=== PATIENT | female | born 1970 | race Two or more races ===

== ENCOUNTER 2018-10-27 11:48 | Inpatient (IN) | payer MEDICAID ==
[~2018-10-27] VITALS: Ht 172.7 cm; Wt 113.4 kg
[~2018-10-27 11:48] MED LIST: CYCLOBENZAPRINE10 MG ORAL; IBUPROFEN800 MG ORAL
--- NOTE | 2018-10-27 11:50 | NUR ---
ED Nurse Note: pt brought by RA from home due to abdominal pain aw n/v for 2 days. moaning and facial grimacing noted. RN noted that pt forced herself to vomit. RN instructed pt, not to do that. pt seen by other ER yesterday. AV shunt noted on left upper arm. on every MWF. last one done yesterday. AAO x4. respirations even and non-labored noted. on monitoring specialist. will wait for the further order.
--- NOTE | 2018-10-27 12:15 | NUR ---
ED Nurse Note: pt medicated and tolerated well
[2018-10-27 12:18] VITALS: BP 159/80
[2018-10-27 12:28] LABS: HEMATOCRIT 39.9 % (37.0-47.0); HEMOGLOBIN 12.5 G/DL (12.0-16.0); MEAN CORPUSCULAR VOLUME 88 FL (80-99); PLATELET COUNT 275 K/UL (150-450); RED BLOOD COUNT 4.52 M/UL (4.20-5.40); RED CELL DISTRIBUTION WIDTH 15.7 % (11.6-14.8); WHITE BLOOD COUNT 14.5 K/UL (4.8-10.8)
[2018-10-27] MEDS ORDERED: LORazepam Inj 2mg/ml 1ml IV ONE (12:30)
--- NOTE | 2018-10-27 12:44 | NUR ---
ED Nurse Note: seen by wayne, with ativan iv and pepcid iv order and given to pt and tolerated well. will continue to monitor
--- NOTE | 2018-10-27 12:45 | NUR ---
ED Nurse Note: RN found 1L NS running, stop the fluid. notified Dr. Pruitt that pt is dialysis pt. will cont. to stop the fluid and monitor. RN also notified that pt is making urine once a day and already went to restroom.
[2018-10-27] MEDS ORDERED: Morphine Sulfate 4mg/ml Inj (IV USE ONLY) IVP ONE (13:00)
--- NOTE | 2018-10-27 13:00 | NUR ---
ED Nurse Note: per Dr. Pruitt, it is ok to transfer pt wihtout urine sample.
[2018-10-27 13:40] LABS: ANION GAP 12 mmol/L (5-15); BLOOD UREA NITROGEN 49 mg/dL (7-18); CALCIUM 8.2 MG/DL (8.5-10.1); CARBON DIOXIDE 28 MMOL/L (21-32); CHLORIDE 96 MMOL/L (98-107); CREATININE 6.3 MG/DL (0.55-1.30); POTASSIUM 4.8 MMOL/L (3.5-5.1); SODIUM 136 MMOL/L (136-145)
[2018-10-27 13:45] LABS: ALANINE AMINOTRANSFERASE 17 U/L (12-78); ALBUMIN 4.2 G/DL (3.4-5.0); ALBUMIN/GLOBULIN RATIO 1.3 (1.0-2.7); ALKALINE PHOSPHATASE 116 U/L (46-116); ASPARTATE AMINO TRANSFERASE 11 U/L (15-37); BILIRUBIN,TOTAL 0.4 MG/DL (0.2-1.0)
[2018-10-27 14:00] VITALS: BP 122/71
--- NOTE | 2018-10-27 14:50 | NUR ---
ED Nurse Note: called CT.
--- NOTE | 2018-10-27 15:36 | Diagnostic Imaging Report ---
Indication: Abdominal pain Technique: Spiral acquisitions obtained through the abdomen and pelvis. No oral contrast utilized, per emergency room physician request No IV contrast utilized, per referring physician request.. Multiplanar reconstructions were generated. Total dose length product 1047.12 mGycm. CTDIvol(s) 16.85 mGy. Dose reduction achieved using automated exposure control Comparison: None Findings: Lack of enteric contrast limits assessment of the GI tract. The appendix is normal. There is no evidence of diverticulosis or diverticulitis. No small bowel distention. No free or loculated intraperitoneal gas or fluid is evident. The distal esophagus, stomach, duodenum are unremarkable. Lack of IV contrast limits assessment of the solid organs. The liver, gallbladder, bile ducts, pancreas, spleen, adrenals are unremarkable. There is bilateral perinephric fat stranding which is nonspecific. The kidneys are somewhat atrophic, are otherwise unremarkable. No renal or ureteral calculi, hydronephrosis, or hydroureter demonstrated. No focal abnormality. No retroperitoneal or mesenteric mass or adenopathy. No pelvic mass or adenopathy. The uterus and ovaries are unremarkable. The bladder is unremarkable. The included lung bases demonstrate dependent atelectatic changes. The bones are unremarkable. Impression: Limited assessment of the GI tract, due to lack of enteric contrast administration No definite acute abnormality Mildly atrophic kidneys The CT scanner at [facility] is accredited by the [employer] and the scans are performed using protocols designed to limit radiation exposure to as low as reasonably achievable to attain images of sufficient resolution adequate for diagnostic evaluation.
--- NOTE | 2018-10-27 16:50 | NUR ---
ED Nurse Note: unable to received reports at this time per ERICK Dalton. will call back 15 mins as requested.
[2018-10-27 17:00] VITALS: BP 128/66
[2018-10-27] MEDS ORDERED: UNOBMED (17:17)
--- NOTE | 2018-10-27 17:19 | NUR ---
ED Nurse Note: Reports given to ERICK Powers.
[2018-10-27] MEDS ORDERED: Morphine Sulfate 2mg/ml Inj(IV/IM USE ONLY) IVP PRN (17:45)
[2018-10-27] MEDS ORDERED: Miralax 17gm pkt ORAL PRN (17:45)
[2018-10-27] MEDS ORDERED: Dextrose 50% 25ml Syringe IV PRN (17:45)
--- NOTE | 2018-10-27 17:45 | NUR ---
NURSE NOTES: Patient came to unit by rodríguez in stable condition. Alert and oriented x4. No complain of pain or distress at this time. Skin intact and dry. IV dressing intact and dry. Belonging checked. Bed lowest position. Call light within reach. Will continue to monitor.
[2018-10-27 18:00] VITALS: BP 146/66
--- NOTE | 2018-10-27 19:30 | NUR ---
HAND-OFF: Report given to Fabiana CHEEMA. Patient in stable condition.
[2018-10-27 20:00] VITALS: BP 147/71
[2018-10-27] MEDS ORDERED: Fleet's Mineral Oil Enema RECTAL SCH (20:30)
--- NOTE | 2018-10-27 20:36 | Emergency Room Report ---
History of Present Illness General Chief Complaint: Abdominal Pain Source: Patient Present Illness HPI Patient is a 48-year-old female presented after increased abdominal pain and vomiting. Patient reports having prior history of diabetes as well as end- stage renal disease. She reports having dialysis yesterday. She is normally dialyzed Wednesday. Patient had not been having any fever. She reports having increased epigastric discomfort as well as pain to the right side of her abdomen. She denies prior history of gallstones. She denies any hemoptysis or hematemesis. She reports having some history of anxiety. Allergies: Coded Allergies: NO KNOWN DRUG ALLERGIES (Unverified Allergy, Unknown, 06/06/14) Patient History Past Medical History: see triage record Now: No Reviewed Nursing Documentation: PMH: Agreed; PSxH: Agreed Nursing Documentation-PMH Past Medical History: No History, Except For Hx Cardiac Problems: Yes Hx Hypertension: Yes Hx Diabetes: Yes Hx Cancer: No Hx Gastrointestinal Problems: Yes Hx Dialysis: Yes Hx Neurological Problems: No Review of Systems All Other Systems: negative except mentioned in HPI Physical Exam Vital Signs Date Time Temp Pulse Resp B/P (MAP) Pulse Ox O2 Delivery O2 Flow Rate FiO2 10/27/18 11:39 98.4 96 24 159/80 (106) 100 Room Air General Appearance: obese, Chronically Ill ENT: hearing grossly normal, other - angular chelitis Neck: full range of motion, supple Respiratory: chest non-tender, lungs clear, normal breath sounds Cardiovascular #1: normal peripheral pulses, regular rate, rhythm Gastrointestinal: soft, tenderness - epigastric Genitourinary: normal inspection, no CVA tenderness Musculoskeletal: normal inspection, back normal Neurologic: normal inspection, alert, oriented x3, responsive, 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 Differential diagnosis include was not limited to myocardial infarction, gastritis, peptic ulcer disease, gastroparesis among others. Because of complexity of patient's case laboratory testing and imaging studies were ordered. Patient was noted to have prior history of end-stage renal disease. Patient was given IV fluids as well as IV antiemetics. She was noted to have some persistent pain was subsequently given pain medications as well as medications for anxiety. She was noted to have some slight improvement in symptoms. CT the abdomen pelvis read by radiology showed no evidence of acute process. Patient will be admitted to the hospital for further evaluation of epigastric pain. Dr. Kevin Hameed was contacted for inpatient management Labs Test 10/27/18 01:09 10/27/18 12:05 Sodium Level 136 MMOL/L (136-145) Potassium Level 4.8 MMOL/L (3.5-5.1) Chloride Level 96 MMOL/L (98-107) Carbon Dioxide Level 28 MMOL/L (21-32) Anion Gap 12 mmol/L (5-15) Blood Urea Nitrogen 49 mg/dL (7-18) Creatinine 6.3 MG/DL (0.55-1.30) Estimat Glomerular Filtration Rate 7.0 mL/min (>60) Glucose Level 320 MG/DL (74-106) Calcium Level 8.2 MG/DL (8.5-10.1) Total Bilirubin 0.4 MG/DL (0.2-1.0) Aspartate Amino Transf (AST/SGOT) 11 U/L (15-37) Alanine Aminotransferase (ALT/SGPT) 17 U/L (12-78) Alkaline Phosphatase 116 U/L (46-116) Total Protein 7.5 G/DL (6.4-8.2) Albumin 4.2 G/DL (3.4-5.0) Globulin 3.3 g/dL Albumin/Globulin Ratio 1.3 (1.0-2.7) Lipase 111 U/L (73-393) Serum Alcohol < 3 mg/dL White Blood Count 14.5 K/UL (4.8-10.8) Red Blood Count 4.52 M/UL (4.20-5.40) Hemoglobin 12.5 G/DL (12.0-16.0) Hematocrit 39.9 % (37.0-47.0) Mean Corpuscular Volume 88 FL (80-99) Mean Corpuscular Hemoglobin 27.7 PG (27.0-31.0) Mean Corpuscular Hemoglobin Concent 31.4 G/DL (32.0-36.0) Red Cell Distribution Width 15.7 % (11.6-14.8) Platelet Count 275 K/UL (150-450) Mean Platelet Volume 6.2 FL (6.5-10.1) Neutrophils (%) (Auto) % (45.0-75.0) Lymphocytes (%) (Auto) % (20.0-45.0) Monocytes (%) (Auto) % (1.0-10.0) Eosinophils (%) (Auto) % (0.0-3.0) Basophils (%) (Auto) % (0.0-2.0) Differential Total Cells Counted 100 Neutrophils % (Manual) 92 % (45-75) Lymphocytes % (Manual) 5 % (20-45) Monocytes % (Manual) 3 % (1-10) Eosinophils % (Manual) 0 % (0-3) Basophils % (Manual) 0 % (0-2) Band Neutrophils 0 % (0-8) Platelet Estimate Adequate Platelet Morphology Normal Red Blood Cell Morphology Normal Prothrombin Time 11.1 SEC (9.30-11.50) Prothromb Time International Ratio 1.0 (0.9-1.1) Activated Partial Thromboplast Time 26 SEC (23-33) Last Vital Signs Date Time Temp Pulse Resp B/P (MAP) Pulse Ox O2 Delivery O2 Flow Rate FiO2 10/27/18 18:14 Room Air 10/27/18 18:00 97.4 92 20 146/66 (92) 94 Status: unchanged Disposition: ADMITTED INPATIENT Condition: Serious Referrals: NOT CHOSEN NABEEL/,REFERRING (PCP) Kendell Pruitt MD Oct 27, 2018 20:36
[2018-10-27] MEDS: NovoLOG Insulin Flexpen SUBQ SCH (21:00)
[2018-10-27] MEDS ORDERED: Zolpidem 5mg tab ORAL PRN (21:00)
[2018-10-27] MEDS: Heparin 5000 units/ml inj SUBQ SCH (21:52)
[2018-10-28] VITALS: BP 141/60
[2018-10-28 04:00] VITALS: BP 136/68
[2018-10-28] MEDS: NovoLOG Insulin Flexpen SUBQ SCH ×4 (06:31→21:38)
[2018-10-28 06:34] LABS: HEMATOCRIT 37.4 % (37.0-47.0); HEMOGLOBIN 11.9 G/DL (12.0-16.0); MEAN CORPUSCULAR VOLUME 88 FL (80-99); PLATELET COUNT 274 K/UL (150-450); RED BLOOD COUNT 4.23 M/UL (4.20-5.40); RED CELL DISTRIBUTION WIDTH 15.5 % (11.6-14.8); WHITE BLOOD COUNT 11.7 K/UL (4.8-10.8)
[2018-10-28 07:06] LABS: ALANINE AMINOTRANSFERASE 17 U/L (12-78); ALBUMIN 3.5 G/DL (3.4-5.0); ALBUMIN/GLOBULIN RATIO 0.9 (1.0-2.7); ALKALINE PHOSPHATASE 97 U/L (46-116); ANION GAP 12 mmol/L (5-15); ASPARTATE AMINO TRANSFERASE 5 U/L (15-37); BILIRUBIN,TOTAL 0.3 MG/DL (0.2-1.0); BLOOD UREA NITROGEN 61 mg/dL (7-18); CALCIUM 8.8 MG/DL (8.5-10.1); CARBON DIOXIDE 29 MMOL/L (21-32); CHLORIDE 100 MMOL/L (98-107); CHOLESTEROL 184 MG/DL (< 200); CREATININE 7.3 MG/DL (0.55-1.30); HDL CHOLESTEROL 38 MG/DL (40-60); SODIUM 141 MMOL/L (136-145); TRIGLYCERIDES 121 MG/DL (30-150)
--- NOTE | 2018-10-28 07:30 | NUR ---
HAND-OFF: Report given to Sha Velasco
--- NOTE | 2018-10-28 07:35 | NUR ---
NURSE NOTES: Patient lying in bed awake. Complain of pain 10/10 on abdomen area. Will administer pain medication as ordered. Skin intact and dry. IV dressing intact and dry. Bed lowest position. Call light within reach. Will continue to monitor.
[2018-10-28 08:00] VITALS: BP 158/124
[2018-10-28] MEDS: sitaGLIPtin 25mg tab ORAL SCH (08:08)
[2018-10-28] MEDS: Heparin 5000 units/ml inj SUBQ SCH ×2 (08:13→21:00)
[2018-10-28] MEDS ORDERED: LORazepam Inj 2mg/ml 1ml IV SCH (09:55)
[2018-10-28 12:00] VITALS: BP 146/57
--- NOTE | 2018-10-28 12:05 | NUR ---
NURSE NOTES: Called [facility] and spoke to Greg that patient has dialysis order for today. Greg will contact insulation board back tender nurse.
[2018-10-28] MEDS: Nateglinide 60mg tab ORAL SCH ×2 (12:13→16:53)
--- NOTE | 2018-10-28 12:38 | NUR ---
NURSE NOTES: Spoke to regarding patient and new order received. Order read back and carried out.
[2018-10-28] MEDS ORDERED: ALPRAZolam 0.5mg tab ORAL PRN (12:45)
--- NOTE | 2018-10-28 12:50 | Consultation ---
History of Present Illness General Chief Complaint: Abdominal Pain Present Illness HPI 48 year old with hx of ESRF on HD, DM, HTN, morbid obesity presented to Er with CC of abdominal pain, headache, neck pain and some other general complains Allergies: Coded Allergies: NO KNOWN DRUG ALLERGIES (Unverified Allergy, Unknown, 06/06/14) Medication History Scheduled Cyclobenzaprine Hcl* (Flexeril*), 10 MG ORAL THREE TIMES A DAY Ibuprofen* (Motrin*), 800 MG ORAL THREE TIMES A DAY Miscellaneous Medications Unable to Obtain Medications (Unable To Obtain Meds), (Reported) Patient History Healthcare decision maker Resuscitation status Full Code Advanced Directive on File Past Medical/Surgical History Past Medical/Surgical History: (1) Diabetes mellitus (2) ESRD (end stage renal disease) (3) Morbid obesity Physical Exam General Appearance: WD/WN, morbidly obese Lines, tubes and drains: peripheral HEENT: normocephalic, atraumatic Neck: non-tender, supple Respiratory/Chest: chest wall non-tender, lungs clear Breasts: no masses Cardiovascular/Chest: normal peripheral pulses, normal rate Abdomen: normal bowel sounds Genitourinary/Rectal: normal genital exam Extremities: normal range of motion Last 24 Hour Vital Signs Date Time Temp Pulse Resp B/P (MAP) Pulse Ox O2 Delivery O2 Flow Rate FiO2 10/28/18 09:00 Room Air 10/28/18 08:00 99.1 113 17 158/124 (135) 99 10/28/18 04:00 98.2 70 20 136/68 (90) 96 10/28/18 00:00 98.7 95 18 141/60 (87) 93 10/27/18 21:00 Room Air 10/27/18 20:00 98.3 88 18 147/71 (96) 93 10/27/18 18:14 Room Air 10/27/18 18:00 97.4 92 20 146/66 (92) 94 10/27/18 17:17 98.0 83 16 143/63 95 Room Air 10/27/18 17:00 98.2 88 17 128/66 96 Room Air 10/27/18 14:00 98.3 90 16 122/71 99 Room Air Intake and Output 10/27/18 10/28/18 19:00 07:00 Intake Total 600 ml 680 ml Balance 600 ml 680 ml Intake Oral 0 ml 680 ml IV Total 600 ml # Voids 6 # Bowel Movements 1 Laboratory Tests Test 10/28/18 05:10 White Blood Count 11.7 K/UL (4.8-10.8) H Red Blood Count 4.23 M/UL (4.20-5.40) Hemoglobin 11.9 G/DL (12.0-16.0) L Hematocrit 37.4 % (37.0-47.0) Mean Corpuscular Volume 88 FL (80-99) Mean Corpuscular Hemoglobin 28.1 PG (27.0-31.0) Mean Corpuscular Hemoglobin Concent 31.8 G/DL (32.0-36.0) L Red Cell Distribution Width 15.5 % (11.6-14.8) H Platelet Count 274 K/UL (150-450) Mean Platelet Volume 5.9 FL (6.5-10.1) L Neutrophils (%) (Auto) % (45.0-75.0) Lymphocytes (%) (Auto) % (20.0-45.0) Monocytes (%) (Auto) % (1.0-10.0) Eosinophils (%) (Auto) % (0.0-3.0) Basophils (%) (Auto) % (0.0-2.0) Differential Total Cells Counted 100 Neutrophils % (Manual) 83 % (45-75) H Lymphocytes % (Manual) 11 % (20-45) L Monocytes % (Manual) 5 % (1-10) Eosinophils % (Manual) 1 % (0-3) Basophils % (Manual) 0 % (0-2) Band Neutrophils 0 % (0-8) Platelet Estimate Adequate Platelet Morphology Normal Hypochromasia 1+ Anisocytosis 1+ Sodium Level 141 MMOL/L (136-145) Potassium Level 5.0 MMOL/L (3.5-5.1) Chloride Level 100 MMOL/L (98-107) Carbon Dioxide Level 29 MMOL/L (21-32) Anion Gap 12 mmol/L (5-15) Blood Urea Nitrogen 61 mg/dL (7-18) H Creatinine 7.3 MG/DL (0.55-1.30) H Estimat Glomerular Filtration Rate 5.9 mL/min (>60) Glucose Level 184 MG/DL (74-106) #H Hemoglobin A1c 9.5 % (4.3-6.0) H Calcium Level 8.8 MG/DL (8.5-10.1) Total Bilirubin 0.3 MG/DL (0.2-1.0) Aspartate Amino Transf (AST/SGOT) 5 U/L (15-37) L Alanine Aminotransferase (ALT/SGPT) 17 U/L (12-78) Alkaline Phosphatase 97 U/L (46-116) Total Protein 7.6 G/DL (6.4-8.2) Albumin 3.5 G/DL (3.4-5.0) Globulin 4.1 g/dL Albumin/Globulin Ratio 0.9 (1.0-2.7) L Triglycerides Level 121 MG/DL (30-150) Cholesterol Level 184 MG/DL (< 200) LDL Cholesterol 126 mg/dL (<100) H HDL Cholesterol 38 MG/DL (40-60) L Cholesterol/HDL Ratio 4.8 (3.3-4.4) H Thyroid Stimulating Hormone (TSH) 2.580 uiU/mL (0.358-3.740) Height (Feet): 5 Height (Inches): 8.00 Weight (Pounds): 250 Medications Current Medications Medications (Trade) Dose Ordered Sig/Trinh Route PRN Reason Start Time Stop Time Status Last Admin Dose Admin Acetaminophen (Tylenol) 650 mg Q4H PRN ORAL T>100.5 10/27/18 17:45 11/26/18 17:44 Alprazolam (Xanax) 0.5 mg Q6H PRN ORAL For Anxiety 10/28/18 12:45 11/04/18 12:44 Clonidine HCl (Catapres Tab) 0.1 mg Q4H PRN ORAL BP over 160 syst and 100 diast 10/28/18 12:00 11/27/18 11:59 Dextrose (Dextrose 50%) 25 ml Q30M PRN IV Hypoglycemia 10/27/18 17:45 11/26/18 17:41 Dextrose (Dextrose 50%) 50 ml Q30M PRN IV hypoglycemia 10/27/18 17:45 11/26/18 17:44 Heparin Sodium (Porcine) (Heparin 5000 units/ml) 5,000 units EVERY 12 HOURS SUBQ 10/27/18 21:00 11/26/18 20:59 10/28/18 08:13 Insulin Aspart (NovoLOG) BEFORE MEALS AND HS SUBQ 10/27/18 21:00 11/26/18 20:59 10/28/18 12:14 Morphine Sulfate (Morphine Sulfate) 1 mg Q4H PRN IVP PAIN 4-10 10/27/18 17:45 11/03/18 17:44 10/28/18 08:09 Nateglinide (Starlix) 60 mg TIAC ORAL 10/28/18 11:30 11/27/18 11:29 10/28/18 12:13 Ondansetron HCl (Zofran) 4 mg Q6H PRN IVP Nausea & Vomiting 10/27/18 17:45 11/26/18 17:44 10/28/18 06:29 Polyethylene Glycol (Miralax) 17 gm HSPRN PRN ORAL Constipation 10/27/18 17:45 11/26/18 17:44 Sitagliptin Phosphate (Januvia) 25 mg ACBREAKFAST ORAL 10/28/18 07:15 11/27/18 07:14 10/28/18 08:08 Zolpidem Tartrate (Ambien) 5 mg HSPRN PRN ORAL Insomnia 10/27/18 21:00 11/03/18 20:59 Assessment/Plan Problem List: (1) ESRD (end stage renal disease) ICD Codes: N18.6 - End stage renal disease SNOMED: 81726332 (2) Morbid obesity ICD Codes: E66.01 - Morbid (severe) obesity due to excess calories SNOMED: 916674012 (3) Muscle spasm ICD Codes: M62.838 - Other muscle spasm SNOMED: 14097026 (4) Diabetes mellitus ICD Codes: E11.9 - Type 2 diabetes mellitus without complications SNOMED: 49537635 Assessment/Plan: HD symptomatic treatment sliding scale fleet enema dvt prophylaxis Gale Lerner MD Oct 28, 2018 12:50
--- NOTE | 2018-10-28 14:21 | General Progress Note ---
Assessment/Plan Problem List: (1) ESRD (end stage renal disease) ICD Codes: N18.6 - End stage renal disease SNOMED: 53948380 (2) Diabetes mellitus ICD Codes: E11.9 - Type 2 diabetes mellitus without complications SNOMED: 06122516 (3) Morbid obesity ICD Codes: E66.01 - Morbid (severe) obesity due to excess calories SNOMED: 451898618 (4) Abdominal pain ICD Codes: R10.9 - Unspecified abdominal pain SNOMED: 05815320 Status Narrative ? cause for abd pain labs and CT reviewed ordered abd us repeat labs ppi Subjective ROS Limited/Unobtainable: Yes Allergies: Coded Allergies: NO KNOWN DRUG ALLERGIES (Unverified Allergy, Unknown, 06/06/14) Objective Last 24 Hour Vital Signs Date Time Temp Pulse Resp B/P (MAP) Pulse Ox O2 Delivery O2 Flow Rate FiO2 10/28/18 12:00 98.5 107 16 146/57 (86) 99 10/28/18 09:00 Room Air 10/28/18 08:00 99.1 113 17 158/124 (135) 99 10/28/18 04:00 98.2 70 20 136/68 (90) 96 10/28/18 00:00 98.7 95 18 141/60 (87) 93 10/27/18 21:00 Room Air 10/27/18 20:00 98.3 88 18 147/71 (96) 93 10/27/18 18:14 Room Air 10/27/18 18:00 97.4 92 20 146/66 (92) 94 10/27/18 17:17 98.0 83 16 143/63 95 Room Air 10/27/18 17:00 98.2 88 17 128/66 96 Room Air Intake and Output 10/27/18 10/28/18 18:59 06:59 Intake Total 600 ml 680 ml Balance 600 ml 680 ml Intake Oral 0 ml 680 ml IV Total 600 ml # Voids 6 # Bowel Movements 1 Laboratory Tests 10/28/18 05:10: White Blood Count 11.7H, Red Blood Count 4.23, Hemoglobin 11.9L, Hematocrit 37.4 , Mean Corpuscular Volume 88, Mean Corpuscular Hemoglobin 28.1, Mean Corpuscular Hemoglobin Concent 31.8L, Red Cell Distribution Width 15.5H, Platelet Count 274, Mean Platelet Volume 5.9L, Neutrophils (%) (Auto) , Lymphocytes (%) (Auto) , Monocytes (%) (Auto) , Eosinophils (%) (Auto) , Basophils (%) (Auto) , Differential Total Cells Counted 100, Neutrophils % ( Manual) 83H, Lymphocytes % (Manual) 11L, Monocytes % (Manual) 5, Eosinophils % ( Manual) 1, Basophils % (Manual) 0, Band Neutrophils 0, Platelet Estimate Adequate, Platelet Morphology Normal, Hypochromasia 1+, Anisocytosis 1+, Sodium Level 141, Potassium Level 5.0, Chloride Level 100, Carbon Dioxide Level 29, Anion Gap 12, Blood Urea Nitrogen 61H, Creatinine 7.3H, Estimat Glomerular Filtration Rate 5.9, Glucose Level 184#H, Hemoglobin A1c 9.5H, Calcium Level 8.8 , Total Bilirubin 0.3, Aspartate Amino Transf (AST/SGOT) 5L, Alanine Aminotransferase (ALT/SGPT) 17, Alkaline Phosphatase 97, Total Protein 7.6, Albumin 3.5, Globulin 4.1, Albumin/Globulin Ratio 0.9L, Triglycerides Level 121 , Cholesterol Level 184, LDL Cholesterol 126H, HDL Cholesterol 38L, Cholesterol/ HDL Ratio 4.8H, Thyroid Stimulating Hormone (TSH) 2.580 Height (Feet): 5 Height (Inches): 8.00 Weight (Pounds): 250 General Appearance: alert EENT: normal ENT inspection Neck: supple Cardiovascular: normal rate Respiratory/Chest: lungs clear Abdomen: non tender, hypoactive bowel sounds, tender Extremities: non-tender Simone Hazel MD Oct 28, 2018 14:21
[2018-10-28 16:00] VITALS: BP 159/78
--- NOTE | 2018-10-28 16:05 | NUR ---
CASE MANAGEMENT:REVIEW 48 YR OLD FEMALE BIBA FROM HOME CC: ABDOMINAL PAIN. NAUSEA AND VOMITING PMH; ESRD ON HD SI: ABDOMINAL PAIN. DEHYDRATION 98.5 96 24 159/80 100% ON RA WBC+14.5 BUN+49 CR+6.3 GLUCOSE+320 IS: IV ZOFRAN 1L NS BOLUS IV PEPCID IV ATIVAN URINE REFLEX : TO MED/SURG 3 EAST INTERQUAL CRITERIA MET
--- NOTE | 2018-10-28 16:18 | History & Physical ---
History and Physical History & Physicial Kevin Hameed MD Oct 28, 2018 16:18
--- NOTE | 2018-10-28 16:21 | Consultation ---
Consult Note Consult Note asked to eval for dialysis management 48 y old HD M W Fr Patient is a 48-year-old female presented after increased abdominal pain and vomiting. Patient reports having prior history of diabetes as well as end- stage renal disease. She reports having dialysis yesterday. She is normally dialyzed Wednesday. Patient had not been having any fever. She reports having increased epigastric discomfort as well as pain to the right side of her abdomen. She denies prior history of gallstones. She denies any hemoptysis or hematemesis. She reports having some history of anxiety. NO KNOWN DRUG ALLERGIES (Unverified Allergy, Unknown, 06/06/14) Past Medical History: No History, Except For Hx Cardiac Problems: Yes Hx Hypertension: Yes Hx Diabetes: Yes Hx Gastrointestinal Problems: Yes Hx Dialysis: Yes examined anxious CC of abd pain and head ache Assessment/Plan ESRD DM Obese HTN HD today keep BP and BS in check per orders discussed with Sterling Michelle MD Oct 28, 2018 16:21
[2018-10-28] MEDS ORDERED: Metoprolol Tartrate 12.5mg TAB ORAL SCH (16:30)
--- NOTE | 2018-10-28 17:00 | History and Physical Report ---
DATE OF ADMISSION: 10/27/2018 CHIEF COMPLAINT: Abdominal pain. HISTORY OF PRESENT ILLNESS: This is a 48-year-old morbid obese female with past medical history significant for end-stage renal disease, on hemodialysis, diabetes type 2, hypertension, and dyslipidemia, who has presented to the hospital complaining about abdominal pain associated with a headache, neck pain, and generalized weakness. The patient was noted to have the right lower extremity redness. Denies any fall or trauma. Shortly after initial evaluation in the emergency room, the patient was admitted to the hospital with abdominal pain as well as right lower extremity cellulitis. PAST MEDICAL HISTORY/PAST SURGICAL HISTORY: As above, history of diabetes type 2, hypertension, dyslipidemia, and end-stage renal disease, on hemodialysis. MEDICATIONS AT HOME: Please refer to medication reconciliation. ALLERGIES: No known drug allergies. SOCIAL HISTORY: Denies any smoking, alcohol, or drugs. FAMILY HISTORY: Noncontributory. REVIEW OF SYSTEMS: Mostly as above. Denies any dysuria, frequency, or hematuria. Denies any hemoptysis or hematochezia. Denies any bright red blood per rectum. PHYSICAL EXAMINATION: VITAL SIGNS: On admission is significant for temperature 98.3, pulse of 90, respirations 16, and blood pressure 122/71. GENERAL: The patient is awake, responsive, and in no acute distress. HEAD AND NECK: Pupils are reactive to light. Extraocular movements intact. NECK: Supple. No JVD. LUNGS: Good air entry. No wheezing or rales. HEART: Reveals S1, S2. Regular rhythm. No gallops. ABDOMEN: Soft, nondistended, and nontender. Morbidly obese. EXTREMITIES: No cyanosis, clubbing, or edema. Left upper extremity has AV fistula functional with a bruit and thrill and the right lower extremity has a cellulitis over the fourth metatarsal area. NEUROLOGIC: Cranial nerves II through XII are grossly intact. Motor is 5/5 in all extremities. Gait is intact. RECTAL/GENITOURINARY: Refused and deferred. PSYCHIATRIC: Mood and affect is intact. LABORATORY DATA: On admission, sodium 136, potassium 4.8, chloride 96, bicarbonate 28, BUN 49, and creatinine 6.3. Cholesterol is 184. Lipase is 111. TSH is 2.58. PT of 11, INR 1.0, and PTT of 26. Alcohol level is negative. WBC of 14, hemoglobin 12, hematocrit 39, and platelets is 275,000. The patient had a CT of the abdomen done showed limited assessment of the gastrointestinal tract due to the lack of enteric contrast administration. No definite acute abnormality. Mild atrophic kidney. ASSESSMENT: 1. Abdominal pain. 2. Right lower extremity right foot cellulitis. 3. End-stage renal disease, on hemodialysis. 4. Hypertension. 5. Diabetes type 2. PLAN: 1. Admit the patient to medicine floor. 2. We will follow up with Dr. Lerner, Pulmonary Critical Care and Dr. Hazel from Gastroenterology and Dr. Kim from Nephrology. 3. Broad spectrum antibiotic with vancomycin. 4. Follow up with the cultures. 5. Ultrasound of the abdomen. 6. Code status is Full Code. 7. DVT prophylaxis with heparin subcutaneous. Kevin Hameed M.D. DR: BARBARA JOB#: [id number] CC:
--- NOTE | 2018-10-28 17:10 | NUR ---
NURSE NOTES: Spoke to regarding patient and new order received. Order read back and carried out.
[2018-10-28] MEDS ORDERED: Vancomycin 1.5gm Premix IVPB SCH (18:00)
--- NOTE | 2018-10-28 18:22 | NUR ---
SHRUTHI NOTES: Called [facility], spoke to Aida. Explained it is a second call reg the order for HD for today 10-28-18. Received call from Andrew dialysis nurse. Per Andrew he will be here around 1030 tonight 10-28-18
--- NOTE | 2018-10-28 19:30 | NUR ---
HAND-OFF: Report given to Fabiana CHEEMA. Patient in stable condition.
[2018-10-28 20:00] VITALS: BP 128/71
[2018-10-28] MEDS: Metoprolol Tartrate 12.5mg TAB ORAL SCH (21:00)
--- NOTE | 2018-10-28 23:00 | NUR ---
NURSE NOTES: Call [facility] [phone] to follow up patient schedule for dialysis today . and spoke to Andrew (dialysis nurse )"stating he's coming around 03:00am due to he is still have patient on going dialysis. charge nurse and loan processing supervisor notified and aware.
[2018-10-29] VITALS: BP 142/77
--- NOTE | 2018-10-29 03:45 | NUR ---
NURSE NOTES Patient vss, afebrile and patient on going Dialysis at 03:45 am by [facility] dialysis . will continue to monitor
[2018-10-29 03:55] VITALS: BP 148/68
--- NOTE | 2018-10-29 06:51 | Pulmonology Progress Note ---
Assessment/Plan Problems: (1) ESRD (end stage renal disease) (2) Morbid obesity (3) Muscle spasm (4) Diabetes mellitus Assessment/Plan fever of 102 yesterday ID consult requested sliding scale wants to go home, but because of fever yesterday, I can't discharge her. Subjective ROS Limited/Unobtainable: No Constitutional: Reports: no symptoms HEENT: Repors: no symptoms Respiratory: Reports: no symptoms Allergies: Coded Allergies: NO KNOWN DRUG ALLERGIES (Unverified Allergy, Unknown, 06/06/14) Objective Last 24 Hour Vital Signs Date Time Temp Pulse Resp B/P (MAP) Pulse Ox O2 Delivery O2 Flow Rate FiO2 10/29/18 03:55 98.2 95 18 148/68 (94) 98 10/29/18 00:00 98.8 90 18 142/77 (98) 98 10/28/18 21:00 Room Air 10/28/18 21:00 88 124/53 10/28/18 20:00 99.4 87 18 128/71 (90) 97 10/28/18 18:35 99.0 10/28/18 17:00 114 159/78 10/28/18 16:00 102.6 114 17 159/78 (105) 99 10/28/18 12:00 98.5 107 16 146/57 (86) 99 10/28/18 09:00 Room Air 10/28/18 08:00 99.1 113 17 158/124 (135) 99 Intake and Output 10/28/18 10/29/18 19:00 07:00 Intake Total 400 ml 795 ml Balance 400 ml 795 ml Intake Oral 400 ml 520 ml IV Total 275 ml # Voids 1 3 # Bowel Movements 1 General Appearance: WD/WN HEENT: normocephalic, atraumatic Respiratory/Chest: chest wall non-tender, lungs clear Cardiovascular: normal peripheral pulses, normal rate, regular rhythm Abdomen: normal bowel sounds, soft, non tender, no mass Extremities: no cyanosis, no clubbing Current Medications Medications (Trade) Dose Ordered Sig/Trinh Route PRN Reason Start Time Stop Time Status Last Admin Dose Admin Acetaminophen (Tylenol) 650 mg Q4H PRN ORAL T>100.5 10/27/18 17:45 11/26/18 17:44 10/28/18 18:05 Alprazolam (Xanax) 0.5 mg Q6H PRN ORAL For Anxiety 10/28/18 12:45 11/04/18 12:44 Clonidine HCl (Catapres Tab) 0.1 mg Q4H PRN ORAL BP over 160 syst and 100 diast 10/28/18 12:00 11/27/18 11:59 Dextrose (Dextrose 50%) 25 ml Q30M PRN IV Hypoglycemia 10/27/18 17:45 11/26/18 17:41 Dextrose (Dextrose 50%) 50 ml Q30M PRN IV hypoglycemia 10/27/18 17:45 11/26/18 17:44 Heparin Sodium (Porcine) (Heparin 5000 units/ml) 5,000 units EVERY 12 HOURS SUBQ 10/27/18 21:00 11/26/18 20:59 10/28/18 08:13 Insulin Aspart (NovoLOG) BEFORE MEALS AND HS SUBQ 10/27/18 21:00 11/26/18 20:59 10/28/18 21:38 Metoprolol Tartrate (Lopressor) 12.5 mg Q12HR ORAL 10/28/18 21:00 11/27/18 20:59 Morphine Sulfate (Morphine Sulfate) 1 mg Q4H PRN IVP PAIN 4-10 10/27/18 17:45 11/03/18 17:44 10/28/18 08:09 Nateglinide (Starlix) 60 mg TIAC ORAL 10/28/18 11:30 11/27/18 11:29 10/28/18 16:53 Ondansetron HCl (Zofran) 4 mg Q6H PRN IVP Nausea & Vomiting 10/27/18 17:45 11/26/18 17:44 10/28/18 06:29 Pantoprazole (Protonix) 40 mg DAILY ORAL 10/29/18 09:00 11/28/18 08:59 Polyethylene Glycol (Miralax) 17 gm HSPRN PRN ORAL Constipation 10/27/18 17:45 11/26/18 17:44 Sitagliptin Phosphate (Januvia) 25 mg ACBREAKFAST ORAL 10/28/18 07:15 11/27/18 07:14 10/28/18 08:08 Vancomycin HCl (Vanco rx to dose) 1 ea DAILY PRN MISC Per rx protocol 10/28/18 16:15 11/27/18 16:14 Zolpidem Tartrate (Ambien) 5 mg HSPRN PRN ORAL Insomnia 10/27/18 21:00 11/03/18 20:59 Gale Lerner MD Oct 29, 2018 06:51
[2018-10-29] MEDS: Nateglinide 60mg tab ORAL SCH (07:05)
[2018-10-29] MEDS: sitaGLIPtin 25mg tab ORAL SCH (07:05)
[2018-10-29] MEDS: NovoLOG Insulin Flexpen SUBQ SCH (07:09)
--- NOTE | 2018-10-29 07:25 | NUR ---
NURSE NOTES: Report received from Fabiana CHEEMA, rounds made. Eritrean speaking. Ambulating in room, anxious, crying, appears disheveled, wants to go home. IV out, refused reinsertion, will notify MD. Left AV fistula +bruit/thrill, skin intact. Instructed patient to rest in bed. Right foot noted with redness, skin intact. Call light in reach, bed in lowest position, will continue to monitor.
--- NOTE | 2018-10-29 07:29 | NUR ---
HAND-OFF: Report given to Lelo Velasco
--- NOTE | 2018-10-29 07:30 | NUR ---
NURSE NOTES:Patient completed dialysis net uf 2,400 ml . Patient tolerated the procedure . will continue to monitor .
--- NOTE | 2018-10-29 07:30 | NUR ---
NURSE NOTES:Patient d/c IV line and refused new iv line Endorsed DANIA Velasco
[2018-10-29 07:56] LABS: PHOSPHORUS 4.5 MG/DL (2.5-4.9)
[2018-10-29 07:59] LABS: CHOLESTEROL 181 MG/DL (< 200); HDL CHOLESTEROL 37 MG/DL (40-60); TRIGLYCERIDES 121 MG/DL (30-150)
[2018-10-29 08:00] VITALS: BP 146/92
[2018-10-29 08:00] LABS: ALANINE AMINOTRANSFERASE 15 U/L (12-78); ALBUMIN 3.3 G/DL (3.4-5.0); ALBUMIN/GLOBULIN RATIO 0.7 (1.0-2.7); ALKALINE PHOSPHATASE 113 U/L (46-116); ANION GAP 14 mmol/L (5-15); ASPARTATE AMINO TRANSFERASE 10 U/L (15-37); BILIRUBIN,TOTAL 0.6 MG/DL (0.2-1.0); BLOOD UREA NITROGEN 45 mg/dL (7-18); CALCIUM 8.9 MG/DL (8.5-10.1); CARBON DIOXIDE 27 MMOL/L (21-32); CHLORIDE 99 MMOL/L (98-107); CREATININE 5.7 MG/DL (0.55-1.30); POTASSIUM 4.2 MMOL/L (3.5-5.1); SODIUM 140 MMOL/L (136-145)
--- NOTE | 2018-10-29 08:18 | General Progress Note ---
Assessment/Plan Problem List: (1) ESRD (end stage renal disease) ICD Codes: N18.6 - End stage renal disease SNOMED: 98806008 (2) Diabetes mellitus ICD Codes: E11.9 - Type 2 diabetes mellitus without complications SNOMED: 70767227 (3) Muscle spasm ICD Codes: M62.838 - Other muscle spasm SNOMED: 17903754 (4) Abdominal pain ICD Codes: R10.9 - Unspecified abdominal pain SNOMED: 53167300 Assessment/Plan: continue Januvia 25 mg daily continue Starlix 60 mg ac tid continue NISS ac / hs Subjective Allergies: Coded Allergies: NO KNOWN DRUG ALLERGIES (Unverified Allergy, Unknown, 06/06/14) All Systems: reviewed and negative except above Subjective events noted Item Value Date Time Bedside Blood Glucose 195 mg/dl H 10/29/18 0709 Bedside Blood Glucose 234 mg/dl H 10/28/18 2138 Bedside Blood Glucose 139 mg/dl H 10/28/18 1701 Bedside Blood Glucose 211 mg/dl H 10/28/18 1214 Bedside Blood Glucose 159 mg/dl H 10/28/18 0631 Objective Last 24 Hour Vital Signs Date Time Temp Pulse Resp B/P (MAP) Pulse Ox O2 Delivery O2 Flow Rate FiO2 10/29/18 03:55 98.2 95 18 148/68 (94) 98 10/29/18 00:00 98.8 90 18 142/77 (98) 98 10/28/18 21:00 Room Air 10/28/18 21:00 88 124/53 10/28/18 20:00 99.4 87 18 128/71 (90) 97 10/28/18 18:35 99.0 10/28/18 17:00 114 159/78 10/28/18 16:00 102.6 114 17 159/78 (105) 99 10/28/18 12:00 98.5 107 16 146/57 (86) 99 10/28/18 09:00 Room Air Intake and Output 10/28/18 10/29/18 19:00 07:00 Intake Total 400 ml 1035 ml Balance 400 ml 1035 ml Intake Oral 400 ml 760 ml IV Total 275 ml # Voids 1 4 # Bowel Movements 1 Laboratory Tests 10/29/18 05:20: White Blood Count [Pending], Red Blood Count [Pending], Hemoglobin [Pending], Hematocrit [Pending], Mean Corpuscular Volume [Pending], Mean Corpuscular Hemoglobin [Pending], Mean Corpuscular Hemoglobin Concent [Pending], Red Cell Distribution Width [Pending], Platelet Count [Pending], Mean Platelet Volume [ Pending], Neutrophils (%) (Auto) [Pending], Lymphocytes (%) (Auto) [Pending], Monocytes (%) (Auto) [Pending], Eosinophils (%) (Auto) [Pending], Basophils (%) (Auto) [Pending], Sodium Level 140, Potassium Level 4.2, Chloride Level 99, Carbon Dioxide Level 27, Anion Gap 14, Blood Urea Nitrogen 45H, Creatinine 5.7H , Estimat Glomerular Filtration Rate 7.9, Glucose Level 195H, Hemoglobin A1c [ Pending], Uric Acid [Pending], Calcium Level 8.9, Phosphorus Level [Pending], Magnesium Level [Pending], Total Bilirubin 0.6, Aspartate Amino Transf (AST/SGOT ) 10L, Alanine Aminotransferase (ALT/SGPT) 15, Alkaline Phosphatase 113, C- Reactive Protein, Quantitative [Pending], Pro-B-Type Natriuretic Peptide [ Pending], Total Protein 7.8, Albumin 3.3L, Globulin 4.5, Albumin/Globulin Ratio 0.7L, Triglycerides Level 121, Cholesterol Level 181, LDL Cholesterol 123H, HDL Cholesterol 37L, Cholesterol/HDL Ratio 4.9H, Thyroid Stimulating Hormone (TSH) 2.288, Random Vancomycin Level [Pending], Hepatitis B Surface Antigen [Pending] Height (Feet): 5 Height (Inches): 8.00 Weight (Pounds): 250 General Appearance: no apparent distress Neck: normal alignment Cardiovascular: normal rate Respiratory/Chest: decreased breath sounds Abdomen: normal bowel sounds Objective Current Medications Medications (Trade) Dose Ordered Sig/Trinh Route PRN Reason Start Time Stop Time Status Last Admin Dose Admin Acetaminophen (Tylenol) 650 mg Q4H PRN ORAL T>100.5 10/27/18 17:45 11/26/18 17:44 10/28/18 18:05 Alprazolam (Xanax) 0.5 mg Q6H PRN ORAL For Anxiety 10/28/18 12:45 11/04/18 12:44 Clonidine HCl (Catapres Tab) 0.1 mg Q4H PRN ORAL BP over 160 syst and 100 diast 10/28/18 12:00 11/27/18 11:59 Dextrose (Dextrose 50%) 25 ml Q30M PRN IV Hypoglycemia 10/27/18 17:45 11/26/18 17:41 Dextrose (Dextrose 50%) 50 ml Q30M PRN IV hypoglycemia 10/27/18 17:45 11/26/18 17:44 Heparin Sodium (Porcine) (Heparin 5000 units/ml) 5,000 units EVERY 12 HOURS SUBQ 10/27/18 21:00 11/26/18 20:59 10/28/18 08:13 Insulin Aspart (NovoLOG) BEFORE MEALS AND HS SUBQ 10/27/18 21:00 11/26/18 20:59 10/29/18 07:09 Metoprolol Tartrate (Lopressor) 12.5 mg Q12HR ORAL 10/28/18 21:00 11/27/18 20:59 Morphine Sulfate (Morphine Sulfate) 1 mg Q4H PRN IVP PAIN 4-10 10/27/18 17:45 11/03/18 17:44 10/28/18 08:09 Nateglinide (Starlix) 60 mg TIAC ORAL 10/28/18 11:30 11/27/18 11:29 10/29/18 07:05 Ondansetron HCl (Zofran) 4 mg Q6H PRN IVP Nausea & Vomiting 10/27/18 17:45 11/26/18 17:44 10/28/18 06:29 Pantoprazole (Protonix) 40 mg DAILY ORAL 10/29/18 09:00 11/28/18 08:59 Polyethylene Glycol (Miralax) 17 gm HSPRN PRN ORAL Constipation 10/27/18 17:45 11/26/18 17:44 Sitagliptin Phosphate (Januvia) 25 mg ACBREAKFAST ORAL 10/28/18 07:15 11/27/18 07:14 10/29/18 07:05 Vancomycin HCl (Vanco rx to dose) 1 ea DAILY PRN MISC Per rx protocol 10/28/18 16:15 11/27/18 16:14 Zolpidem Tartrate (Ambien) 5 mg HSPRN PRN ORAL Insomnia 10/27/18 21:00 11/03/18 20:59 Yusef Fuentes MD Oct 29, 2018 08:18
[2018-10-29 08:56] VITALS: BP 146/92
[2018-10-29] MEDS: Metoprolol Tartrate 12.5mg TAB ORAL SCH (08:56)
[2018-10-29] MEDS: Heparin 5000 units/ml inj SUBQ SCH (09:00)
--- NOTE | 2018-10-29 09:06 | NUR ---
NURSE NOTES: Dr. Lerner notified of no IV/refusing reinsertion, temperature 102.1 (Tylenol given at 0900). No further orders.
--- NOTE | 2018-10-29 09:15 | NUR ---
NURSE NOTES: Charge nurse (Radhika) and nursing facility supervisor notified that patient requesting to leave AMA.
--- NOTE | 2018-10-29 09:15 | Consultation ---
DATE OF CONSULTATION: 10/28/2018 NEPHROLOGY CONSULTATION CONSULTING PHYSICIAN: Yusef Fuentes M.D. REFERRING PHYSICIAN: Kevin Hameed M.D. REASON FOR CONSULTATION: Diabetes management. HISTORY OF PRESENT ILLNESS: The patient is a 48-year-old morbid obese female with history of diabetes, end-stage renal disease on hemodialysis, hypertension, and dyslipidemia, who presented to the hospital with abdominal pain, headache, neck pain, and generalized weakness. I was called to manage diabetes. PAST MEDICAL HISTORY: 1. Diabetes. 2. Hypertension. 3. End-stage renal disease. 4. Dyslipidemia. PAST SURGICAL HISTORY: Dialysis access placement. MEDICATIONS AT HOME: Reviewed and reconciled. ALLERGIES TO MEDICATIONS: None. SOCIAL HISTORY: No smoking, alcohol, or drug use. FAMILY HISTORY: Noncontributory. REVIEW OF SYSTEMS: As per HPI. PHYSICAL EXAMINATION: VITAL SIGNS: Blood pressure 130/80, pulse of 80, and respiratory rate 18. HEENT: Pupils are equal and reactive to light and accommodation. Sclerae anicteric. NECK: Supple. HEART: Regular. LUNGS: Clear. ABDOMEN: Positive bowel sounds. EXTREMITIES: No clubbing or cyanosis. Positive for edema. LABORATORY DATA: Sodium 136, potassium 4.8, chloride 96, bicarbonate 28, BUN 49, and creatinine 6.3. DIAGNOSES: 1. End-stage renal disease, on hemodialysis. 2. Abdominal pain. 3. Diabetes, out of control. PLAN: 1. Start Januvia 25 mg daily. 2. Start Starlix 60 mg before meals t.i.d. 3. NovoLog sliding scale insulin at bedtime. 4. Further adjustment according to blood glucose values. Yusef Fuentes M.D. DR: SHAYLA JOB#: [id number] CC: ARMANDO
--- NOTE | 2018-10-29 09:30 | NUR ---
NURSE NOTES: Patient alert, oriented x4, tearful, shouting out, wants to go home. Requesting to leave AMA, explained the importance and benefits of hospitalization/treatment due to dialysis needs, suspected infection (right foot redness/elevated temperature and WBC), explained potential risks for worsening illness. Family member at bedside, translated to patient, instructed patient to follow up with her PCP, verbalized understanding.
--- NOTE | 2018-10-29 09:30 | NUR ---
NURSE NOTES: Dr. Lerner and Dr. Kim notified that patient left AMA.
[2018-10-29 09:56] LABS: HEMATOCRIT 40.4 % (37.0-47.0); HEMOGLOBIN 12.5 G/DL (12.0-16.0); MEAN CORPUSCULAR VOLUME 88 FL (80-99); PLATELET COUNT 298 K/UL (150-450); RED BLOOD COUNT 4.57 M/UL (4.20-5.40); RED CELL DISTRIBUTION WIDTH 15.7 % (11.6-14.8); WHITE BLOOD COUNT 16.3 K/UL (4.8-10.8)
--- NOTE | 2018-10-29 10:43 | General Progress Note ---
Assessment/Plan Problem List: (1) ESRD (end stage renal disease) ICD Codes: N18.6 - End stage renal disease SNOMED: 02001890 (2) Diabetes mellitus ICD Codes: E11.9 - Type 2 diabetes mellitus without complications SNOMED: 50191747 (3) Morbid obesity ICD Codes: E66.01 - Morbid (severe) obesity due to excess calories SNOMED: 868568818 (4) Abdominal pain ICD Codes: R10.9 - Unspecified abdominal pain SNOMED: 01503492 Assessment/Plan: patient wants to leave AMA recommended to fu as out patient Subjective ROS Limited/Unobtainable: Yes Allergies: Coded Allergies: NO KNOWN DRUG ALLERGIES (Unverified Allergy, Unknown, 06/06/14) Objective Last 24 Hour Vital Signs Date Time Temp Pulse Resp B/P (MAP) Pulse Ox O2 Delivery O2 Flow Rate FiO2 10/29/18 09:30 101.8 10/29/18 09:30 101.8 10/29/18 09:00 Room Air 10/29/18 08:56 123 146/92 10/29/18 08:50 102.3 10/29/18 08:00 102.1 123 20 146/92 (110) 90 10/29/18 03:55 98.2 95 18 148/68 (94) 98 10/29/18 00:00 98.8 90 18 142/77 (98) 98 10/28/18 21:00 Room Air 10/28/18 21:00 88 124/53 10/28/18 20:00 99.4 87 18 128/71 (90) 97 10/28/18 17:00 114 159/78 10/28/18 16:00 102.6 114 17 159/78 (105) 99 10/28/18 12:00 98.5 107 16 146/57 (86) 99 Intake and Output 10/28/18 10/29/18 19:00 07:00 Intake Total 400 ml 1035 ml Output Total 2400 ml Balance 400 ml -1365 ml Intake Oral 400 ml 760 ml IV Total 275 ml Output Hemodialysis UF 2400 ml # Voids 1 4 # Bowel Movements 1 Laboratory Tests 10/29/18 05:20: Sodium Level 140, Potassium Level 4.2, Chloride Level 99, Carbon Dioxide Level 27, Anion Gap 14, Blood Urea Nitrogen 45H, Creatinine 5.7H, Estimat Glomerular Filtration Rate 7.9, Glucose Level 195H, Hemoglobin A1c [Pending], Uric Acid 6.0 , Calcium Level 8.9, Phosphorus Level 4.5, Magnesium Level 2.4, Total Bilirubin 0.6, Aspartate Amino Transf (AST/SGOT) 10L, Alanine Aminotransferase (ALT/SGPT) 15, Alkaline Phosphatase 113, C-Reactive Protein, Quantitative 37.0H, Pro-B- Type Natriuretic Peptide > 25417T, Total Protein 7.8, Albumin 3.3L, Globulin 4.5 , Albumin/Globulin Ratio 0.7L, Triglycerides Level 121, Cholesterol Level 181, LDL Cholesterol 123H, HDL Cholesterol 37L, Cholesterol/HDL Ratio 4.9H, Thyroid Stimulating Hormone (TSH) 2.288, Random Vancomycin Level 24.8, Hepatitis B Surface Antigen [Pending] 10/29/18 08:00: White Blood Count 16.3H, Red Blood Count 4.57, Hemoglobin 12.5, Hematocrit 40.4 , Mean Corpuscular Volume 88, Mean Corpuscular Hemoglobin 27.3, Mean Corpuscular Hemoglobin Concent 30.9L, Red Cell Distribution Width 15.7H, Platelet Count 298, Mean Platelet Volume 5.4L, Neutrophils (%) (Auto) , Lymphocytes (%) (Auto) , Monocytes (%) (Auto) , Eosinophils (%) (Auto) , Basophils (%) (Auto) , Differential Total Cells Counted 100, Neutrophils % ( Manual) 91H, Lymphocytes % (Manual) 4L, Monocytes % (Manual) 5, Eosinophils % ( Manual) 0, Basophils % (Manual) 0, Band Neutrophils 0, Platelet Estimate Adequate, Platelet Morphology Normal, Anisocytosis 1+ Height (Feet): 5 Height (Inches): 8.00 Weight (Pounds): 250 General Appearance: alert EENT: normal ENT inspection Neck: supple Cardiovascular: normal rate Respiratory/Chest: decreased breath sounds Abdomen: normal bowel sounds, non tender, soft Extremities: non-tender Simone Hazel MD Oct 29, 2018 10:43
--- NOTE | 2018-10-29 11:34 | Nephrology Progress Note ---
Assessment/Plan Problem List: (1) Morbid obesity (2) ESRD (end stage renal disease) (3) Diabetes mellitus Assessment ESRD DM Obese HTN Plan HD on Wednesday keep BP and BS in check Subjective Interval Events/Complaints signed AMA Objective Objective Last 24 Hour Vital Signs Date Time Temp Pulse Resp B/P (MAP) Pulse Ox O2 Delivery O2 Flow Rate FiO2 10/29/18 09:30 101.8 10/29/18 09:30 101.8 10/29/18 09:00 Room Air 10/29/18 08:56 123 146/92 10/29/18 08:50 102.3 10/29/18 08:00 102.1 123 20 146/92 (110) 90 10/29/18 03:55 98.2 95 18 148/68 (94) 98 10/29/18 00:00 98.8 90 18 142/77 (98) 98 10/28/18 21:00 Room Air 10/28/18 21:00 88 124/53 10/28/18 20:00 99.4 87 18 128/71 (90) 97 10/28/18 17:00 114 159/78 10/28/18 16:00 102.6 114 17 159/78 (105) 99 10/28/18 12:00 98.5 107 16 146/57 (86) 99 Intake and Output 10/28/18 10/29/18 19:00 07:00 Intake Total 400 ml 1035 ml Output Total 2400 ml Balance 400 ml -1365 ml Intake Oral 400 ml 760 ml IV Total 275 ml Output Hemodialysis UF 2400 ml # Voids 1 4 # Bowel Movements 1 Laboratory Tests 10/29/18 05:20: Sodium Level 140, Potassium Level 4.2, Chloride Level 99, Carbon Dioxide Level 27, Anion Gap 14, Blood Urea Nitrogen 45H, Creatinine 5.7H, Estimat Glomerular Filtration Rate 7.9, Glucose Level 195H, Hemoglobin A1c 9.1H, Uric Acid 6.0, Calcium Level 8.9, Phosphorus Level 4.5, Magnesium Level 2.4, Total Bilirubin 0.6, Aspartate Amino Transf (AST/SGOT) 10L, Alanine Aminotransferase (ALT/SGPT) 15, Alkaline Phosphatase 113, C-Reactive Protein, Quantitative 37.0H, Pro-B- Type Natriuretic Peptide > 97875L, Total Protein 7.8, Albumin 3.3L, Globulin 4.5 , Albumin/Globulin Ratio 0.7L, Triglycerides Level 121, Cholesterol Level 181, LDL Cholesterol 123H, HDL Cholesterol 37L, Cholesterol/HDL Ratio 4.9H, Thyroid Stimulating Hormone (TSH) 2.288, Random Vancomycin Level 24.8, Hepatitis B Surface Antigen [Pending] 10/29/18 08:00: White Blood Count 16.3H, Red Blood Count 4.57, Hemoglobin 12.5, Hematocrit 40.4 , Mean Corpuscular Volume 88, Mean Corpuscular Hemoglobin 27.3, Mean Corpuscular Hemoglobin Concent 30.9L, Red Cell Distribution Width 15.7H, Platelet Count 298, Mean Platelet Volume 5.4L, Neutrophils (%) (Auto) , Lymphocytes (%) (Auto) , Monocytes (%) (Auto) , Eosinophils (%) (Auto) , Basophils (%) (Auto) , Differential Total Cells Counted 100, Neutrophils % ( Manual) 91H, Lymphocytes % (Manual) 4L, Monocytes % (Manual) 5, Eosinophils % ( Manual) 0, Basophils % (Manual) 0, Band Neutrophils 0, Platelet Estimate Adequate, Platelet Morphology Normal, Anisocytosis 1+ Height (Feet): 5 Height (Inches): 8.00 Weight (Pounds): 250 Sterling Kim MD Oct 29, 2018 11:34
[2018-10-29] MEDS ORDERED: Metoprolol 25mg tab ORAL SCH (21:00)
--- NOTE | 2018-10-31 14:22 | Diagnostic Imaging Report ---
Indication: Abdominal pain Technique: Grayscale and duplex Doppler imaging of the abdomen performed. Comparison: None Findings: The liver is 20 cm. Doppler interrogation of the main portal vein shows patency with hepatopedal, monophasic flow. There is no biliary ductal dilatation identified. The CBD measures 4 mm. The spleen is unremarkable. Gallbladder is unremarkable. No gallstones or wall thickening identified. Sonographic Munguia's sign was negative per technologist. There demonstrated part of the pancreas, aorta and IVC show no definite abnormalities although not well seen. Both kidneys appear atrophic. There is no hydronephrosis. IMPRESSION: Hepatomegaly. Bowel gas obscuring retroperitoneal structures including the pancreas. Atrophic kidneys.
--- NOTE | 2018-11-02 11:39 | Discharge Summary ---
Discharge Summary Discharge Summary _ DATE OF ADMISSION: 10/27/2018 DATE OF DISCHARGE: 10/29/2018 Patient left AGAINST MEDICAL ADVICE REASON FOR ADMISSION: 48 years old female with past medical history of diabetes mellitus type 2, hypertension, dyslipidemia, end-stage renal disease, on hemodialysis, morbid obesity, presented to the hospital complaining of abdominal pain , associated with headache , neck pain and generalized weakness. Patient also noted to have right lower extremity redness. Patient denied fall or trauma. Laboratory work-up revealed leukocytosis WBC 14.5, stable hemoglobin and hematocrit. BUN 49, creatinine 6.3, consistent with known history of end-stage renal disease. Glucose 320. Serum alcohol level less than 3. CT of the abdomen and pelvis revealed no definite acute abnormality. Mildly atrophic kidneys noted. Shortly after initial evaluation emergency department patient was admitted to the hospital with abdominal pain and right lower extremity cellulitis. CONSULTANTS: pulmonary Dr. Lerner pen ruler operator Dr. Fuentes GI specialist Dr. Hazel binding printer Dr. Kim HOSPITAL COURSE: Patient admitted to medical surgical floor. Patient started on empiric antibiotics for the right lower extremity cellulitis. Abdominal ultrasound demonstrated hepatomegaly. Bowel gas obscuring the retroperitoneal structures, including the pancreas. Atrophic kidneys. Blood sugar was managed as per pen ruler operator recommendations with Januvia, Starlix and sliding scale of short acting insulin before meals and at nighttime. Hemoglobin A1c -9.5 ,clearly not at goal. Patient was counseled on diabetic cardiac diet and compliance with anti- glycemic medication regimen at home. Supplemental oxygen was on board as needed to keep pulse oximetry above 92%. DVT prophylaxis provided. Account Support Associate followed. Renal parameters and electrolytes were closely monitored. Electrolytes corrected as needed, and nephrotoxins were avoided. Hemodialysis was done on 10/28 and was planned for Wednesday, 10/31. Blood pressure was managed with the current regimen of beta-rosita and clonidine on as an as-needed basis. Blood pressure remained stable. Lipid panel revealed elevated LDL 126. TSH within normal limits. Leukocytosis persist with trend up to 16.3. C-reactive protein -37 . Patient also had fever of 101.8. Blood cultures were pending. GI specialist seen the patient. Abdominal pain seemed to be unspecified. Pain management was addressed. GI prophylaxis provided. Patient was able to tolerate diet. Antiemetic were on board as needed. Stable LFT and lipase. CT of the abdomen and pelvis and abdominal ultrasound unremarkable. Hepatitis B serology was negative. Patient decided to leave AGAINST MEDICAL ADVICE. GI specialist recommended to follow-up with GI specialist as outpatient. The risks and consequences of signing AGAINST MEDICAL ADVICE were discussed with patient in detail. Patient verbalized understanding, nevertheless signed AMA form and left. FINAL DIAGNOSES: Abdominal pain Right lower extremity foot cellulitis End-stage renal disease , on hemodialysis Hypertension Diabetes mellitus type 2 with hyperglycemia, [id number] Morbid obesity I have been assigned to dictate discharge summary for this account. I was not involved in the patient's management. More Bettencourt NP Nov 02, 2018 11:39
== END 2018-10-29 10:43 | disposition left against medical advice (07) | DRG 251 ==
LOC: EDBD 11:48 → EMR 12:30 → 3E 13:43 → EDBEDREQ 16:44
DX: R10.9 Unspecified abdominal pain (principal); E11.22 Type 2 diabetes mellitus with diabetic chronic kidney disease; L03.115 Cellulitis of right lower limb; I12.0 Hypertensive chronic kidney disease with stage 5 chronic kidney disease or end stage renal disease; E11.65 Type 2 diabetes mellitus with hyperglycemia; E66.01 Morbid (severe) obesity due to excess calories; R51 Headache; M62.838 Other muscle spasm; R53.1 Weakness; N18.6 End stage renal disease; Z99.2 Dependence on renal dialysis; E78.5 Hyperlipidemia, unspecified; Z68.38 Body mass index [BMI] 38.0-38.9, adult
CPT/HCPCS: 36415; 74176; 76700; 80053; 80061; 80202; 80329; 82962; 83036; 83690; 83735; 83880; 84100; 84443; 84550; 85007; 85025; 85610; 85730; 86140; 86706; 87081; 96361; 96374; 96375; 99285; J1815; J2405